=== PATIENT | female | born 2000 | race Caucasian/White ===

== ENCOUNTER 2020-05-29 15:29 | Emergency (ER) | payer SELFPAY ==
[~2020-05-29] VITALS: Ht 167.6 cm; Wt 54.4 kg
--- NOTE | 2020-05-29 16:23 | Diagnostic Imaging Report ---
EXAMINATION: ANKLE 3 + VIEWS RIGHT INDICATION: Fall COMPARISON: None FINDINGS: No acute fracture or dislocation. The ankle mortise is intact and symmetric. Alignment is anatomic. No ankle joint effusion. Soft tissues appear unremarkable. IMPRESSION: No acute osseous injury. Signed by: Gabino Mckeon MD on 05/29/2020 4:20 PM
--- NOTE | 2020-05-29 16:49 | Emergency Department Note ---
History of Present Illnes History of Present Illness Chief Complaint: General Medicine Complaints History of Present Illness This is a 19 year old female PATIENT IN FROM HOME WITH COMPLAINTS OF RIGHT ANKLE PAIN AND SWELLING; STATES THAT SHE JUMPED A FENCE LOOKING FOR HER CAT AND TWISTED HER ANKLE. Historian: Patient Arrival Mode: Car Sustainability Consultant Required: No Onset (how long ago): minute(s) Location: RIGHT ANKLE Quality: PAIN Radiation: Reports non-radiation Severity: moderate Onset quality: sudden Timing of current episode: constant Chronicity: new Context: Denies recent illness Relieving factors: none Exacerbating factors: none Associated symptoms: Reports denies other symptoms Treatments prior to arrival: none Past Medical/Family History Physician Review I have reviewed the patient's past medical and family history. Any updates have been documented here. Past Medical History Recent Fever: No Clinical Suspicion of Infectio: No New/Unexplained Change in Ment: No Past Medical History: None Past Surgical History: None Social History Smoking Cessation: Never Smoker Counseling Performed: No Alcohol Use: None Any Illegal Drug Use: No TB Exposure/Symptoms: No Physically hurt or threatened: No Family History Family history of heart diseas: No Other Any Pre-Existing Lines (PICC,: No Review of Systems Review of Systems Constitutional: Reports no symptoms EENTM: Reports no symptoms Cardiovascular: Reports no symptoms Respiratory: Reports no symptoms Gastrointestinal: Reports no symptoms Genitourinary: Reports no symptoms Musculoskeletal: Reports as per HPI Integumentary: Reports no symptoms Neurological: Reports no symptoms Psychological: Reports no symptoms Endocrine: Reports no symptoms Hematological/Lymphatic: Reports no symptoms Physical Exam Related Data Allergies: Coded Allergies: No Known Allergies (Unverified , 05/29/20) Triage Vital Signs Vital Signs Date Time Temp Pulse Resp B/P (MAP) Pulse Ox O2 Delivery O2 Flow Rate FiO2 05/29/20 15:34 98.1 92 16 116/74 100 Room Air Vital signs reviewed: Yes Physical Exam CONSTITUTIONAL Constitutional: Present well-developed, Present well-nourished HENT HENT: Present normocephalic, Present atraumatic, Present oropharynx clear/moist, Present nose normal HENT L/R: Present left ext ear normal, Present right ext ear normal EYES Eyes: Reports PERRL, Reports conjunctivae normal NECK Neck: Present ROM normal PULMONARY Pulmonary: Present effort normal, Present breath sounds normal CARDIOVASCULAR Cardiovascular: Present regular rhythm, Present heart sounds normal, Present capillary refill normal, Present normal rate GASTROINTESTINAL Abdominal: Present soft, Present nontender, Present bowel sounds normal GENITOURINARY Genitourinary: Present exam deferred SKIN Skin: Present warm, Present dry MUSCULOSKELETAL Musculoskeletal: Present ROM normal, Present other (MILD TENDERNESS MEDIAL ASPECT OF RIGHT ANKLE, NO SWELLING NOTED); Absent swelling NEUROLOGICAL Neurological: Present alert, Present oriented x 3, Present no gross motor or sensory deficits PSYCHOLOGICAL Psychological: Present mood/affect normal, Present judgement normal Results Imaging Imaging results reviewed: Yes Assessment & Plan Medical Decision Making MDM XRAY R/O FX Reassessment Reassessment DC HOME, IBUPROFEN/TYLENOL OTC UD, F/U DR Hanane TURNER (ORTHO) Assessment & Plan Final Impression: (1) Right ankle sprain Depart Disposition: HOME, SELF-CARE Last Vital Signs Date Time Temp Pulse Resp B/P (MAP) Pulse Ox O2 Delivery O2 Flow Rate FiO2 05/29/20 15:34 98.1 92 16 116/74 100 Room Air RAYMOND KENNY MD May 29, 2020 16:49
[2020-05-29 17:00] VITALS: BP 110/79
== END 2020-05-29 17:00 | disposition home or self-care (01) ==
LOC: ER 15:40
DX: S93.401A Sprain of unspecified ligament of right ankle, initial encounter (principal); X50.1XXA Overexertion from prolonged static or awkward postures, initial encounter; Y93.39 Activity, other involving climbing, rappelling and jumping off; Y92.008 Other place in unspecified non-institutional (private) residence as the place of occurrence of the external cause
CPT/HCPCS: 99284